=== PATIENT | female | born 1975 | race Caucasian/White ===

== ENCOUNTER → 2020-04-14 08:51 | Outpatient (CLI) | payer OTHER, SELFPAY ==
[2020-04-07 13:27] VITALS: BMI 25.2
--- NOTE | 2020-04-14 08:53 | US_ITS ---
STUDY: ULTRASOUND BREAST - LEFT REASON FOR EXAM: Female, 44 years old. Palpable lump left breast. TECHNIQUE: Axial and longitudinal images of the LEFT breast were performed with a high resolution ultrasound transducer. # OF IMAGES: 23 COMPARISON: Comparison is made with prior mammogram done earlier today. FINDINGS: LEFT Breast: The palpable abnormality corresponds to a 3.7 cm x 3.4 cm x 2.5 cm cyst. US/Breast Limited Unilateral IMPRESSION: The palpable abnormality corresponds to a 3.7 cm x 3.4 cm x 2.5 cm cyst. ASSESSMENT CATEGORY: BIRADS Category 2: Benign. A letter regarding these results will be sent to the patient by the facility within 30 days. Electronically Signed: Chin Millan MD at 11:06 EST , Service support ,
--- NOTE | 2020-04-14 09:44 | BI_ITS ---
MAMMOGRAPHY - BILATERAL DIAGNOSTIC REASON FOR EXAM: Female, 44 years old. Left breast lump. PERTINENT HISTORY: Grandmother with breast cancer. TECHNIQUE: Digital bilateral breast rhoda (3D mammographic acquisition) in the CC and MLO projections. 2-D mediolateral oblique (MLO) and craniocaudad (CC) views of both breasts were obtained. CAD: Full Field Digital Mammography with Computer Added Detection was performed. COMPARISON: Comparison is made with prior outside examination dated 10/01/2019. FINDINGS: Breast Composition: The breasts are heterogeneously dense, which may obscure small masses. The palpable abnormality corresponds to a 3.9 cm x 3.7 cm well-defined nodule in the retroareolar region of the left breast. Correlation with ultrasound is recommended. No other significant abnormalities are identified. Stable examination. BI/DIAG MAMM W/CAD, UNILAT IMPRESSION: Stable 3.9 cm x 3.7 cm well-defined nodule in the retroareolar region of the left breast. Correlation with ultrasound is recommended. ASSESSMENT CATEGORY: BIRADS Category 0: Incomplete. Need additional imaging evaluation. A letter regarding these results will be sent to the patient by the facility within 30 days. Approximately 10% of breast cancers are not detected by mammography. A normal mammogram should not delay biopsy of a clinically suspicious abnormality. Electronically Signed: Chin Millan MD at 10:44 EST , Service support ,
== END ==
PROVIDERS: Referring Provider Nurse Practitioner Women's Health; Visit Provider Nurse Practitioner Women's Health
DX: N60.02 Solitary cyst of left breast (principal); Z80.3 Family history of malignant neoplasm of breast
CPT/HCPCS: 76642; 77061; 77065; G0279

== ENCOUNTER 2020-04-30 05:58 | Day surgery (SDC) | payer OTHER, SELFPAY ==
[2020-04-21 14:02] VITALS: BMI 24.7
[2020-04-30] VITALS (7 sets, daily range): BP systolic 97–113; BP diastolic 60–72; PULSE 62–85; RESP 14–16; TEMP 36.4–37.4; O2SAT 98–100; BMI 25.4
--- NOTE | 2020-04-30 | CYST_PTH ---
PATIENT: TYRELL BLACKMON LOC[place] [facility] [place][id number] AGE/SX: 44/F ROOM: RE04/30/[address]: Dr. Tara Hernandez MD : 1975 BED: DIS: 04/30/2020 SPEC #: [id number] RECD: 04/30/20 10:06 STATUS: DA MICHAEL #: [id number] RAKESH: 04/30/20 00:[address]: Tara Hernandez DEPT: SURGICAL PATHOLOGY RECD BY: Cong Hahn ENTERED: 04/30/20 10:06 SP TYPE: Cyst OTHR DR: No Primary Care Phys Tissues: Breast, NOS Procedures: Surgery Specimen Level IV HEADER OPERATION: Excision cyst breast PRE-OP DIAGNOSIS: Cyst of left breast, solitary TISSUE SUBMITTED: Left breast cyst wall MICROSCOPIC DIAGNOSIS Cyst of left breast, excisional biopsy: Fibrocystic change. Focal minimal intraductal hyperplasia without atypia. AM:michael 05/03/2020 MICROSCOPIC DESCRIPTION Slides are reviewed. GROSS DESCRIPTION Received in fixative is one container labeled with the patient's name and designated left breast cyst wall. The specimen consists of a piece of soft tissue consisting of portion of cyst wall. The specimen is markedly distorted and measures 5 x 1.5 x 0.5 cm. The specimen is serially sectioned and submitted entirely in two cassettes. / SJ:rg 04/30/20 TC:5 CPT: 36881
--- NOTE | 2020-04-30 06:00 | HP_ITS ---
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 Tara Hernandez MD) household members: children number of children: 3 current occupational status: employed current occupation: [employer] history of recent travel: No sexually active: Yes Smoking Status: Never smoker alcohol intake: current alcohol intake frequency: a few times a month substance use type: does not use what type of physical activity do you participate in: running seatbelt use: always do you feel safe at home: Yes additional social history: HPI HPI HPI: HALLE BLACKMON, is a 44 F who presents to the office today for HPI HPI Surgical H&P: Yes HPI: HALLE BLACKMON, is a 44 F who presents to the office today for left breast cyst. Patient states she has had it for about a year however couple weeks ago during a shower she noticed that it seemed quite a bit larger. Patient states she occasionally has pain at that area but is is very minimal. She states she also has pain in her breast when she is supposed to have her period which she no longer has that she has had an ablation. Patient's ultrasound was given a BI- RADS 2 shows at 3.7 x 3.4 x 2.5 cm simple cyst is retroareolar. ROS General General: No weight change, appetite, fatigue, colon cancer, breast cancer or weakness HEENT HEENT: No difficulty swallowing, eye injury, eye surgery, swollen glands or hoarseness Endo Endocrine: No thyroid disease, diabetes mellitus, thyroid cancer, Hair loss, heat intolerance or cold intolerance Skin Skin: No rash or changing moles Breast Breast: Yes left breast lump; no right breast lump, nipple discharge, breast pain, abnormal mammogram, abnormal US or breast enlargement Musc Musculoskeletal: No back problems, arthritis, rheumatoid arthritis, gout or joint pain Cardio Cardiovascular: No pacemaker, heart disease, atrial fibrillation, high blood pressure, heart attack, heart stent, palpitations, shortness of breat with exertion or chest pain Psych Psychiatric: Yes anxiety; no depression or hearing voices Resp Respiratory: No shortness of breath, No sleep apnea, Yes cough, No COPD, Yes asthma, No emphysema, No wheezing Gastro Gastrointestinal: No abdominal pain, No nausea or vomiting, No diarrhea, No constipation, No blood in stool, No acid reflux, Yes hemorrhoids, No ulcers, No gallbladder problem, No black,tarry stools Kaden Hematologic: No blood thinners, No blood disorders, No bleeding, No anemia, No blood clots Neuro Neurologic: No system reviewed and no additional complaints, except as docu, No as per HPI, No abnormal walking, No abnormal hearing, No abnormal movements, No abnormal speech, No behavioral changes, No burning sensations, No confusion, No seizure-like activity, No unsteadiness, No dizziness, No localized weakness, No frequent falls, No headache(s), No lack of coordination, No loss of vision, No memory loss, No numbness, No other visual disturbances, No radiating pain, No restless legs, No sensory deficit, No fainting, No tingling, No tremor(s), No weakness, No other Exam Const General: cooperative, comfortable, no acute distress, well developed Chest Breast Palpation: No nipple discharge, No supraclavicular, No change in skin Other: Inspection: Breast symmetric bilaterally, left nipple areolar complex does protrude more noticeably than the right. Left breast: Retroareolar mass about 7 cm x 7 cm on exam, minimally tender, no change in overlying skin other masses appreciated, no nipple discharge. Right breast: No masses, nipple discharge or change overlying skin. No bilateral lymphadenopathy Resp Effort & Inspection: normal respiratory effort Cardio Rate: regular rate Assessment & Plan Problems 1. Cyst of breast, left, solitary N60.02 Plan Reviewed the ultrasound with the patient. Patient would like to have the cyst removed as she has had it for about a year and does not want to have to do repeat aspirations as that is pretty common when aspirating the cyst. Discussed the procedure of excision of left breast cyst with the patient including risks not limited to bleeding, infection, nipple discharge initially, and anesthesia. Patient no further question this time like to schedule for April 30. We will plan to do MAC anesthesia. Tara Hernandez M.D. Pager: [phone] [facility] [address] [place] [address], [address] [place] [address] Office: [phone] Plan Detail Follow Up We will schedule surgery Coding Level of Care Code Off vis,new,level 3 Diagnoses Cyst of breast, left, solitary N60.02 COVID (Procedure Consent) Procedure Criteria Procedure Criteria: Yes Elective The surgeon/proceduralist and patient have discussed in detail the risk of exposure to and/or potential harm posed by the COVID-19 virus with having a surgery/procedure at this time versus the risk of? delaying the surgery/procedure. It is not possible to know either the risk of delaying the surgery or procedure or chance of getting an infection with perfect accuracy, but a joint decision was made between the patient and the surgeon/proceduralist ?to proceed at this time with the scheduled surgery/procedure as indicated on the consent form. I have re-examined the patient. There are no clinical changes since date of exam.
[2020-04-30] MEDS: Lactated Ringers 1,000 ML 100 ML IV (06:45)
[2020-04-30] MEDS: Cefazolin 2 GM in 0.9% Normal Saline 100 ML IV (07:26)
--- NOTE | 2020-04-30 08:28 | OP.PCM_ITS ---
Report of Operation Date of Procedure: 04/30/20 Pre-Operative Diagnosis: Left breast cyst Post-Operative Diagnosis: Same Surgery/Procedure Performed:: Excision of left breast cyst Type of Anesthesia:: Local MAC Anesthesiologist: Stephane Morgan Specimen's removed: Left breast cyst Estimated Blood Loss (mL): <10 cc Fluids Replaced: 500 cc Description of Procedure: Indication: 44-year-old female with retroareolar left breast cyst about 3.5 cm in size. Patient was not interested in an aspiration and there would likely ne ed to repeat them as it would probably come back, patient preferred just to have the cyst excised. Description: Patient brought to the operating room placed supine on operating table. Timeout was completed verifying correct patient, procedure, site, positioning, special equipment prior to beginning procedure. MAC anesthesia was induced. Left breast was prepped draped in usual sterile fashion. An inferior areolar border incision was made with a 15 blade scalpel. Local anesthesia of 0.5% Marcaine with epinephrine was used. Prior to incision and throughout the case a total of 15 cc. Electrocautery was used to deepen to the cyst. Cyst was grasped with an Allis. An 18-gauge needle was used to aspirate the cyst for a total of 20 cc of normal taylor looking fluid. Metzenbaum scissors used to circumferentially dissect the cyst from the surrounding tissue. Cyst wall was sent to pathology. Cavity was irrigated. Hemostasis was assured. Incision was closed with 3-0 Vicryl interrupted subdermal sutures and a running 4-0 Monocryl suture with Dermabond. Surgical bra was also placed. Tolerated procedure well taken to the postanesthesia care unit in stable cond ition. - Complications none
[2020-04-30] MEDS: Bupiv/Epi 0.25% 30 ML Vial (08:31)
--- NOTE | 2020-04-30 08:34 | PCM.DC.GS ---
Discharge Diet: Light diet - advance as tolerated Discharge Activity: May not drive while taking narcotic pain medications. May shower in (days): 1 Lifting Restrictions: no lifting > 15 pounds with the left arm x3 days Additional Activity Instructions:: Compression/sports bra during the day for a week as well as at night for the first couple nights. Call your doctor if your incision/area has: Continuous Slow Oozing, Sudden Increased Bleeding, Increased Pain/ Swelling, Increased Redness, Foul Smelling Discharge, Swelling at the incision site Call your doctor if you observe: Fever of 101 or Higher Allergies/Adverse Reactions: Allergies codeine Allergy (Intermediate, Verified 04/27/20 12:20) Hives latex Allergy (Mild, Verified 04/27/20 12:20) PT UNSURE OF REACTION Medications to take at Discharge [facility] 1 cap PO QHS 04/27/20 Oxycodone HCl/Acetaminophen [Percocet 5/325] 1 tab PO Q6H PRN PRN 3 Days #10 tab 04/30/20 The following prescriptions were given: Oxycodone HCl/Acetaminophen [Percocet 5/325] 1 tab PO Q6H PRN PRN 3 Days #10 tab PRN Reason: Pain Transmission Status: Received by [facility] Primary Care Physician: Care Physician,No Primary [Primary Care Provider] - Test Results: Test results from this visit will be discussed in further detail at your follow-up appointment, if applicable. Please Follow Up With: Tara Hernandez MD - After 5 PM and on the weekend call [phone]. When: Call the office for follow-up appointment in 2 weeks. Proposed Discharge Date: 04/30/20
== END 2020-04-30 09:36 | disposition home or self-care (01) ==
LOC: SDC 06:00 → AC 06:00
PROVIDERS: Referring Provider Surgery; Visit Provider Surgery
PROC: (CPT 19120; principal; 2020-04-30 07:15)
DX: N60.12 Diffuse cystic mastopathy of left breast (principal); N60.82 Other benign mammary dysplasias of left breast
CPT/HCPCS: 00400; 19120; 88304; 88305; J7120; J2405